=== PATIENT | male | born 1970 | race African-American/Black ===

== ENCOUNTER 2024-09-28 10:09 | Outpatient (AMB) | payer OTHER, SELFPAY ==
--- NOTE | 2024-09-28 07:46 | MHC.OFFVIS ---
Intake Visit Reasons: Current Smoker HPI HPI Current Smoker: Details: Initial visit for this 54yo smoker with a 25+PYH. Patient started smoking at age 18 for 36 years at 1/2-1ppd. . Denies marijuana use. Denies second hand smoke exposure. Denies exposure to chemicals or substances like asbestos. . Denies known family history of lung cancer. Denies personal history of cancers. Denies chest CT in last year. . Denies recent travel outside the [place]. Denies recent respiratory illness or recent hospitalization for respiratory issues. Denies testing positive for COVID. Admits receiving COVID Vaccine. . Denies fever, chills, new/worsening cough, hemoptysis, hoarseness or dysphagia. Denies significant chest pain, significant dyspnea or unintentional weight loss. Patient Lung Cancer Screening Questionnaire reviewed with patient by provider. . Shared Decision Making Completed. Patient meets criteria. Discussed in detail with patient, the risk vs benefit of LDCT screening. Patient consents to proceed with scan. Discussed smoking cessation. [facility] Medical History (Updated 09/28/24 @ 10:28 by Sasha Ward PA-C) Hypertension Erectile dysfunction Nicotine dependence, cigarettes, uncomplicated Surgical History (Updated 09/28/24 @ 10:34 by Sasha Ward PA-C) No pertinent past surgical history Social History (Updated 09/28/24 @ 10:35 by Sasha Ward PA-C) Alcohol intake: current Alcohol intake frequency: a few times a month Patient Tobacco Use Status: Current everyday Tobacco user Years Smoked: (onset 18yo, 1/2-1ppd x 36yrs, 25+PYH) Assessment & Plan Assessment & Plan (1) Nicotine dependence, cigarettes, uncomplicated: Comment: (onset 18yo, 1/2-1ppd x 36yrs, 25+PYH) Code(s): F17.210 - Nicotine dependence, cigarettes, uncomplicated Category: Medical Plan: - SDM visit completed today in office. - Patient meets criteria for LDCT for lung cancer screening purposes and is asymptomatic. - Smoking cessation counseling offered. Patients can always call [phone]. - Will arrange for a LDCT scan of the chest for screening purposes at [facility]. - Risks, benefits, and alternatives were discussed in detail and the patient agrees to proceed. - Risks discussed include but are not limited to: radiation exposure, anxiety during testing and while awaiting results, false negatives, false positives and possibility of additional intervention such as further imaging or surgical procedures for benign disease. - Benefits are obviously detection of lung cancer at an early stage which can lead to improved outcomes. - Discussed the importance of screening program compliance with adherence to yearly LDCT scan as scheduled - or sooner interval scans for personalized screening regimen. - Discussed follow up plan. Our office will send a letter discussing results and if needed set up phone call and office visit based on CT findings. - Patient educated on results categorization and the management decisions for suspicious findings potentially found on the screening LDCT scan. Any patient with a Lung RADS score of 3 or 4 will be reviewed by a multidisciplinary team at [facility] to form a plan of action in regards to scan findings. - If further work up is warranted for a suspicious lung finding this will be followed by the Lung Cancer Screening program in conjunction with the Thoracic Surgery Department at [facility]. - A copy of the office note and LDCT will be sent to the patient's PCP - as well as documentation on any associated further plans of care. - Incidental findings on LDCT are the PCP's responsibility. These findings are indicated with an S finding on the LDCT Assessment. A note discussing the findings will be sent to the PCP who is then responsible for further management. - All questions answered.? Coding Level of Care Code Lung Cancer Screening G0296 Diagnoses Nicotine dependence, cigarettes, uncomplicated F17.210
--- OUTSIDE RECORDS SUMMARY | 2024-09-28 10:40 | XMS_ITS | Data Portability ---
Author Organization [facility], [address] Address [address] [place] [address] Assessment No assessment recorded. Plan of Treatment Reminders Order Date Submit Date Provider Last Modified By Organization Details Last Modified Time Details Appointments None record ed. Lab None record ed. Referral None record ed. Procedures None record ed. Surgeries None record ed. Imaging None record ed. Medication Orders None record ed. Patient TargetsNo targets recorded. Patient InstructionsNo instructions recorded. Reason for Referral None Reported. Medical Equipment None Reported. Vitals None Recorded Social History None recorded. Functional Status None recorded. Mental Status None recorded. Family History Nothing Reported. Medical History No medical history recorded. Past Encounters Encounter ID Performer Location Encounter Start Date Encounter Closed Date Diagnosis/Indication Diagnosis SNOMED-CT Code Diagnosis ICD10 Code Diagnosis Note [id number] [facility] [address] [place] [phone] 06/06/2018 08:37:39 06/06/2018 09:33:50 [id number] [facility] [place] [address] 09/11/2021 15:17:11 09/11/2021 15:29:23 [id number] [address] [place] [address] 04/17/2018 11:24:40 04/17/2018 11:55:22 Health Concerns Section Related Observation LastModified by Organization Detai ls LastModified Time None Recorded Concern Status LastModified by Organization Details LastModified Time None Recorded Advance Directives Directive None Recorded Payers Insurance Date Sequence Insurance Name Policy Number Policy Lockhart Covered Member ID Lockhart Member ID Guarantor Name 05/19/2024 1 [facility] [id number] Odilon Guadalupe [id number] Odilon Guadalupe 05/19/2024 1 [facility] [id number] Odilon Guadalupe [id number] Odilon Guadalpue
--- OUTSIDE RECORDS SUMMARY | 2024-09-28 10:40 | XMS_ITS | Clinical Summary ---
Author Organization [facility] Address [address] [place] [address] Care Team Providers Care Channel Process Supervisor Name Role Phone Ryanne Rashid Primary Care Provider + [phone] Allergies No known active allergies Medications amLODIPine (NORVASC) 5 mg tablet Take 1 tablet (5 mg total) by mouth 1 (one) time each day. Active hydroCHLOROthia zide 12.5 mg tablet Take 1 tablet (12.5 mg total) by mouth 1 (one) time each day. Active sildenafiL (VIAGRA) 50 mg tablet TAKE 1-2 TABLETS BY MOUTH 1 HOUR PRIOR TO SEXUAL ACTIVITY DIRECTED *MAX 2 TABLETS IN 24 HOURS* Active polyethylene glycol (Golytely) 236-22.74-6.74 -5.86 gram solution Take 4L by mouth once for one dose. May substitue any PEG. Starting at 6PM the night before your procedure drink 1 8oz glasses at your own pace until you complete half of the gallon. Finish 2nd half of the gallon 5 hours before your procedure. 4000 mL Active Encounters Date Type Department Care Team Description 07/03/2024 Telephone Gastroenterology - [address] [facility] [address] [place] [phone] Sukhjinder Steele MD from Last 3 Months Social History Tobacco Use Types Packs/Day Years Used Date Smoking Tobacco: Never Assessed Sex and Gender Information Value Date Recorded Sex Assigned at Not on file Legal Sex Male 9:55 AM EST Gender Identity Not on file Sexual Orientation Not on file Plan of Treatment Health Maintenance Due Date Last Done Comments Pneumococcal Vaccine: 50+ Years (1 of 1 - PCV) 2018 Hepatitis B Vaccines (2 of 3 - Hep B Twinrix 3-dose series) 01/20/2024 12/23/2023 Cholesterol Screening (Lipid Panel) 05/18/2024 Colorectal Cancer Screening: Colonoscopy 05/18/2024 Depression Screening 05/18/2024 HIV Screening 05/18/2024 Hepatitis C Screening 05/18/2024 Hypertension/CHF/CAD Annual BMP Blood Test 05/18/2024 Social Influencers of Health Screening 05/18/2024 Influenza Vaccine (#1) 2024 , 12/24/2022, 02/06/2022 DTaP,Tdap,and Td Vaccines (2 - Td or Tdap) 08/25/2028 08/25/2018 COVID-19 Vaccine Completed 12/23/2023, 08/2022, 02/06/2022, Additional history exists Hepatitis A Vaccines Aged Out 12/23/2023 No long er eligible based on patient's age to complete this topic Zoster Vaccines Completed 02/15/2024, 12/16/2023 HIB Vaccines Aged Out No longer eligi ble based on patient's age to complete this topic HPV Vaccines Aged Out No longer eligi ble based on patient's age to complete this topic IPV Vaccines Aged Out No longer eligi ble based on patient's age to complete this topic MMR Vaccines Aged Out No longer eligi ble based on patient's age to complete this topic Meningococcal ACWY Vaccine Aged Out N o longer eligible based on patient's age to complete this topic Meningococcal B Vaccine Aged Out No l onger eligible based on patient's age to complete this topic RSV Immunization Patients Under 20 months Aged Out No longer eligible based on patient's age to complete this topic Varicella Vaccines Aged Out No longer eligible based on patient's age to complete this topic Insurance [facility] [id number] Care Teams Channel Process Supervisor Relationship Specialty Start Date End Date Ryanne Rashid [facility] [place] [address] PCP - General Family Medicine 05/21/24
== END 2024-09-28 10:49 | disposition home or self-care (01) ==
LOC: HO.HPS 10:09
PROVIDERS: PCP Internal Medicine Geriatric Medicine; Referring Provider Internal Medicine Geriatric Medicine; Visit Provider Physician Assistant Medical
DX: F17.210 Nicotine dependence, cigarettes, uncomplicated (principal)
CPT/HCPCS: G0296

== ENCOUNTER 2024-09-28 10:35 | Outpatient (REF) | payer OTHER, SELFPAY ==
--- NOTE | ~2024-09-28 | CT_ITS ---
EXAMINATION: CT LUNG SCREENING HISTORY: F17.210 - Nicotine dependence, cigarettes, uncomplicated TECHNIQUE: Low dose axial images were obtained from the sternal notch to upper abdomen without IV contrast per standard departmental protocol. Sagittal and coronal reformatted images were also obtained and reviewed. One or more of the following techniques was used for dose reduction: Automated exposure control, adjustment of the mA and/or kV according to patient size, use of iterative reconstruction technique. DLP: 49 mGy-cm COMPARISON: There are no prior studies available for comparison. FINDINGS: Lung nodules: No suspicious pulmonary nodules are identified. Emphysema: mild Coronary Calcification: mild Aortic Arch Calcification: none Potentially Significant Incidentals : none Additional Chest Findings: There is no pleural or pericardial effusion. No mediastinal or axillary lymphadenopathy is identified. Visualized upper abdomen: The visualized portions of the liver, spleen, and adrenals have an unremarkable unenhanced appearance. CT/CT lung screening IMPRESSION: No suspicious pulmonary nodules are identified. LUNG-RADS ASSESSMENT: Lung-RADS 1: Negative MANAGEMENT: Continue annual screening with LDCT in 12 months Category S: N/A Electronically signed by: Yony Duggan MD 09/28/2024 11:56 AM EDT
== END 2024-09-28 10:36 | disposition home or self-care (01) ==
LOC: HO.CT 10:35
PROVIDERS: PCP Nurse Practitioner Family; Visit Provider Physician Assistant Medical
DX: Z12.2 Encounter for screening for malignant neoplasm of respiratory organs (principal); F17.210 Nicotine dependence, cigarettes, uncomplicated
CPT/HCPCS: 71271; G0296

== ENCOUNTER → 2024-09-28 10:36 | Outpatient (BNV) | payer OTHER, SELFPAY | PROVIDERS: PCP Nurse Practitioner Family; Visit Provider Radiology Diagnostic Radiology | DX: F17.210 Nicotine dependence, cigarettes, uncomplicated (principal) | CPT/HCPCS: 71271 ==

== ENCOUNTER 2024-11-23 10:57 | Outpatient (AMB) | payer OTHER, SELFPAY ==
--- NOTE | 2024-11-23 11:02 | A.OFFVIS_ITS ---
Vital Signs 11/23/24 11:03 Height 5 ft 10 in Weight 168 lb BMI 24.1 BP 124/77 Blood Pressure Location Lt brachial Position Sitting Pulse 92 Pulse Oximetry (%) 97 Oxygen Delivery Method Room Air Intake Visit Reasons: Sprague screening Intake Note: Patient new consult for 1st pre Colonoscopy screening. Patient denies any GI issues. [employer] Technician Required: No Accompanied by: Self / Same As Patient Allergies No Known Allergies Allergy (Verified 11/23/24 11:02) Medication List - Last Reconciled 11/23/24 by Kecia Barriga CNP amlodipine 5 mg PO DAILY hydrochlorothiazide 12.5 mg PO DAILY HPI HPI Sprague screening: Details: Patient is a 54-year-old male with PMH of hypertension, nicotine dependence. Referred by PCP for pre colonoscopy screening. This will be his first colonoscopy. His bowel movements occur daily and are soft and formed, without reports of constipation, diarrhea, or blood in stools. He denies regular stomach pain, nausea, vomiting, heartburn, or difficulty swallowing, with occasional mild self-resolving abdominal discomfort noted. No significant changes in appetite or unexplained weight loss; current weight of 1 68 pounds is consistent with his historical baseline. He had a stool-based colon cancer screening two years ago, likely Cologuard, which he reports as negative. There is no history of GI comorbidities or symptoms that necessitate further immediate workup. Past labs reveal no concerning anemia or diabetes, though one liver level was noted to be slightly elevated, repeating pending. Social hx: -Previously consumed liquor; switched to beer and drinks once or twice per week. -denies recreational drug use -current 1/2 ppd smoker - family hx as below - denies personal hx of CA -denies significant cardiopulmonary history -tolerated anesthesia in the past without difficulty. [facility] Medical History (Updated 11/23/24 @ 11:30 by Kecia Barriga CNP) Colon cancer screening Hypertension Erectile dysfunction Nicotine dependence, cigarettes, uncomplicated Surgical History No pertinent past surgical history Social History Alcohol intake: current Alcohol intake frequency: a few times a month Patient Tobacco Use Status: Current everyday Tobacco user Years Smoked: (onset 18yo, 1/2-1ppd x 36yrs, 25+PYH) Review of Systems Const Reports as per HPI ENT Reports as per HPI Card Reports as per HPI Resp Reports as per HPI GI Reports as per [facility] Reports as per HPI Physical Exam Vital Signs: Last Vital Signs Pulse 92 11/23/24 11:03 BP 124/77 11/23/24 11:03 Pulse Ox 97 11/23/24 11:03 Oxygen Delivery Method Room Air 11/23/24 11:03 BMI result Body Mass Index 24.1 Const General: healthy appearing, no acute distress and well developed Nutritional Appearance: average body habitus Orientation/consciousness: patient oriented x3 HEENT Head: Yes normal to inspection, Yes normocephalic and Yes atraumatic Face and sinus: Yes normal facial exam Eyes General: appearance normal, both eyes and all related structures Neck Neck: Yes normal visual inspection Resp Effort & Inspection: normal respiratory effort, able to speak in complete sentences, no tracheal deviation and symmetric chest movement Neuro General: patient oriented x3 Gait exam (Neuro): Normal gait present Psych Appearance: grossly normal Mental Status: mental status grossly normal Speech and movement: Normal speech and movement present Affect: normal affect Attitude: cooperative Thought process: Normal thought process present Thought content: Normal thought content present Insight: Good insight present (Psych) Judgement: Good judgement present (Psych) Assessment & Plan Assessment & Plan (1) Colon cancer screening: Code(s): Z12.11 - Encounter for screening for malignant neoplasm of colon Category: Medical Plan: First-time colonoscopy screening following reported negative stool-based testing with benign GI history. Stool based results not available at time of visit. Additional Testing: -Encouraged to complete routine labs ordered by PCP in a fasted state. Medications: -prescriptions for laxative tablets and MiraLax sent to pharmacy; instructions for Gatorade purchase and clear liquid diet given. Patient educated on scheduling process, procedure preparation, including avoiding certain foods and ensuring clear liquid intake Advised on necessity for ride post-procedure due to sedation. Plan Follow-up after colonoscopy as warranted or sooner if needed Time: I spent a total of 30 minutes on the date of encounter which includes: Preparing to see the patient (reviewed previous documentation, test results and medical history) Performing a medically appropriate exam and/or evaluation Ordering medications, tests, and procedures Documenting clinical information in the health record Orders: Referrals GI Procedure Notification Z12.11 - Encounter for screening for malignant neoplasm of colon Medications: New polyethylene glycol 3350 (Miralax) per colonoscopy prep instructions 238 grams PO ONCE 238 grams 0RF bisacodyl Take per colonoscopy instructions 5 mg PO BID 4 tabs 0RF Coding Level of Care Code New Pt New Pt Level 3 (93681) Patient Type New Diagnoses Colon cancer screening Z12.11
[2024-11-23 11:03] VITALS: BP 124/77; PULSE 92; O2SAT 97; BMI 24.1
--- OUTSIDE RECORDS SUMMARY | 2024-11-23 11:59 | XMS_ITS | Clinical Summary ---
Author Organization [employer] Address [address] [place] [address] Care Team Providers Care Human Capital Consultant Name Role Phone Jl Stubbs MD Primary Care Prov ider Allergies No known active allergies Medications sildenafil (Viagra) 50 MG tablet Take 50 mg by mouth if needed for erectile dysfunction. Active hydroCHLOROthia zide (HYDRODiuril) 25 MG tablet Take 1 tablet (25 mg) by mouth Once per day. 90 tablet 3 09/28/2024 09/29/19 26 Active amLODIPine (Norvasc) 5 MG tablet TAKE 1 TABLET BY MOUTH EVERY DAY 90 tablet 1 09/28/2024 Active Active Problems Problem Noted Date Diagnosed Date Encounter for medical examination to establish c are 06/29/2024 Assessment & Plan (06/29/2024 10:08 AM EDT): Last pcp visit 1 year ago ER: - Hospitalization:- Pmhx: HTN, ED Pshx:- All:- Meds: amlodine 5mg, hydrochlorothiazide 12.5Mg, sildenafil 50mg Screening for lung cancer 06/29/2024 Assessment & Plan (06/29/2024 10:12 AM EDT): Will refer for lung cancer screening tasked [place] Screening for colon cancer 06/29/2024 Assessment & Plan (06/29/2024 10:12 AM EDT): Will refer to Gi for screening colonoscopy Primary hypertension 06/29/2024 Assessment & Plan (09/28/2024 9:48 AM EDT): Borderline elevated, will increase hydrochlorothiazide to 25mg, keep low sodium diet and exercise as tolerated, follow up in 3 months, bp target <140/90. New labs ordered Assessment & Plan (06/29/2024 10:14 AM EDT): On amlodipine and hydrochlorothiazide, continue low sodium diet and exercise as tolerated, keep bp log, new bp machine sent to [facility] pharmacy Encounters Date Type Department Care Team Description 09/28/2024 8:45 AM EDT Office Visit [facility] PEDS [address] [place] [address] Jl Stubbs MD Primary hypertension (Primary Dx) 09/28/2024 Travel 09/21/2024 Travel 09/20/2024 Patient Outreach [facility] MEDICINE [address] [place] [address] Jl Stubbs MD Pre-visit Planning (SDOH screening completed on 06/29/24) 08/26/2024 Refill [facility] PEDS [address] [place] [address] Jl Stubbs MD 08/26/2024 Refill [facility] MED & PEDS [address] [place] [address] Jl Stubbs MD 08/23/2024 Refill [facility] MED & PEDS [address] [place] [address] Rosa Talley FNP from Last 3 Months Family History Medical History Relation Name Comments HIV Father Hypertension Mother Cancer Neg Hx Relation Name Status Comments Father Mother Social History Tobacco Use Types Packs/Day Years Used Date Smoking Tobacco: Every Day Cigarettes 0.5 36.7 Started: 1990 Smokeless Tobacco: Never Tobacco Cessation:Ready to Q uit: Not Asked; Counseling Given: Not Answered Alcohol Use Standard Drinks/Week Comments Yes 0 (1 standard drink = 0.6 oz pur e alcohol) socially nilton Depression Answer Date Recorded Patient Health Questionnaire-9 Score 0 06/29/2024 Patient Health Questionnaire-9 Score 0 06/29/2024 Last PHQ-9: Questionnaire Data Not on file 0 06/29/2024 Housing Stability Answer Date Recorded What is your housing situation today? I have jovi muñiz 06/29/[address] you li ve. Do you have problems with any of the following? None of the above 06/29/2024 Food Insecurity Answer Date Recorded Within the past 12 months, y ou worried that your food would run out before you got money to buy more: Never True 06/29/2024 Within the past 12 months,th e food you bought just didn't last and you didn't have enough money to get more: Never True 01/2025 Transportation Answer Date Recorded In the past 12 months, has l ack of transportation kept you from medical appts, meetings, work or from getting things needed for daily living? No 06/29/2024 Utilities Answer Date Recorded In the past 12 months, has t he electric, gas, oil or water company threatened to shut off services in your home? No 06/29/2024 Depression Answer Date Recorded Patient Health Questionnaire-2 Score 0 06/29/2024 Internet Access Answer Date Recorded Internet Access Q1 Yes 06/29/2024 Internet Access Q2 Not on file 06/29/2024 Sex and Gender Information Value Date Recorded Sex Assigned at Male 01/18/2022 10:35 AM EDT Legal Sex Male 4:07 PM EDT Gender Identity Male 06/28/2024 2:28 PM EDT Sexual Orientation Don't know 06/28/2024 2 :28 PM EDT Last Filed Vital Signs Vital Sign Reading Time Taken Comments Blood Pressure 134/90 09/28/2024 8:49 AM EDT Pulse 84 09/28/2024 8:49 AM EDT Temperature 36.8 C (98.3 F) 09/28/2024 8:49 AM EDT Respiratory Rate 20 09/28/2024 8:49 AM EDT Oxygen Saturation - - Inhaled Oxygen Concentration - - Weight 74.8 kg (165 lb) 09/28/2024 8:49 AM EDT Height 175.3 cm (5' 9 ) 09/28/2024 8:49 AM EDT Body Mass Index 24.37 09/28/2024 8:49 AM EDT Plan of Treatment Upcoming Encounters Date Type Department Care Team (Late st Contact Info) Description 12/31/2024 9:30 AM EDT Telemedicine [facility] MED [facility] PEDS [address] [place] [address] Jl Stubbs MD [address] [place] [address] Health Maintenance Due Date Last Done Comments CT Colonography 1968 Colonoscopy 1968 Colorectal Cancer Screening 1968 FIT DNA/Cologuard 1968 FIT 1968 FOBT 1968 Lipid Panel 1968 Sigmoidoscopy 1968 Hepatitis B Vaccines (1 of 3 - 19+ 3-dose series) 06/08/1987 Pneumococcal Vaccine: 50+ Years (1 of 2 - PCV) 06/08/1987 Zoster Vaccines (1 of 2) 2018 COVID-19 Vaccine ( - 2023-2 5 season) 2024 Influenza Vaccine (#1) 2024 Disability Screening 06/28/2025 06/28/2024 Alcohol/Substance Use Screening 06/29/2025 06/29/2024 Depression Screening 06/29/2025 06/29/2024, 06/29/2024 SDOH Screening 06/29/2025 06/29/2024 Tobacco Screening 06/29/2025 06/29/2024 DTaP/Tdap/Td Vaccines (2 - T d or Tdap) 08/25/2028 08/25/2018 RSV Patients and Patients Aged 60 years or older (1 - 1-dose 75+ series) 06/08/2043 HIV Screening Completed 05/26/2022 Hepatitis C Screening Completed 05/26/2022 HIB Vaccines Aged Out No longer eligi ble based on patient's age to complete this topic HPV Vaccines Aged Out No longer eligi ble based on patient's age to complete this topic Hepatitis A Vaccines Aged Out No long er eligible based on patient's age to complete this topic IPV Vaccines Aged Out No longer eligi ble based on patient's age to complete this topic Meningococcal B Vaccine Aged Out No l onger eligible based on patient's age to complete this topic Meningococcal Vaccine Aged Out No veronika alex eligible based on patient's age to complete this topic RSV under 20 months Aged Out No longe r eligible based on patient's age to complete this topic Rotavirus Vaccines Aged Out No longer eligible based on patient's age to complete this topic Insurance [facility] CHO[facility]1 [place] [id number] Care Teams Human Capital Consultant Relationship Specialty Start Date End Date Jl Stubbs MD [address] [place] [id number] PCP - General Internal Medicine 06/29/24
--- OUTSIDE RECORDS SUMMARY | 2024-11-23 11:59 | XMS_ITS | Encounter Summary ---
Author Organization [employer] Address [address] [facility] 7 [place] [address] Care Team Providers Care Reimbursement Counselor Name Role Phone Jl Stubbs MD Primary Care Prov ider Reason for Visit * Reason Onset Date Comments Med Refill 08/26/2024 Encounter Details Date Type Department Care Team ([facility] st Contact Info) Description 08/26/[address] [facility] CHC MED & PEDS [address] [place], [place] [phone] Jl Stubbs MD [address] [place] [address] Social History Tobacco Use Types Packs/Day Years Used Date Smoking Tobacco: Every Day Cigarettes 0.5 36.7 Started: 1990 Smokeless Tobacco: Never Alcohol Use Standard Drinks/Week Comments Yes 0 (1 standard drink = 0.6 oz pur e alcohol) socially nilton Depression Answer Date Recorded Patient Health Questionnaire-9 Score 0 06/29/2024 Patient Health Questionnaire-9 Score 0 06/29/2024 Last PHQ-9: Questionnaire Data Not on file 0 06/29/2024 Housing Stability Answer Date Recorded What is your housing situation today? I have jovicira muñiz 06/29/[address] you [...] PM EDT Sexual Orientation Don't know 06/28/2024 2: 28 PM EDT documented as of this encounter Plan of Treatment Upcoming Encounters Date Type Department Care Team (Late st Contact Info) Description 12/31/2024 9:30 AM EDT Telemedicine [facility] MED & PEDS [address] [place] [address] Jl Stubbs MD [address] [place] [address] documented as of this encounter Visit Diagnoses Not on filedocumented in this encounter Additional Health Concerns Assessment Noted Time PHQ-9 Depression Total Score: 0 06/30/19 9:34 AM EDT documented as of this encounter Care Teams Reimbursement Counselor Relationship Specialty Start Date End Date Jl Stubbs MD [address] [place] [address] PCP - General Internal Medicine 06/29/24 documented as of this encounter
--- OUTSIDE RECORDS SUMMARY | 2024-11-23 11:59 | XMS_ITS | Clinical Summary ---
Author Organization [facility] Address [address] [place] [address] Care Team Providers Care Registered Nurse Obstetrics Name Role Phone Ryanne Rashid Primary Care Provider + [phone] Allergies No known active allergies Medications amLODIPine [...] hours before your procedure. 4000 mL Active Social History Tobacco Use Types Packs/Day Years [...] Hep B Twinrix 3-dose series) 01/20/2024 12/23/2023 Depression Screening 03/21/2024 Cholesterol Screening (Lipid Panel) 05/18/2024 Colorectal Cancer Screening: Colonoscopy 05/18/2024 HIV Screening 05/18/2024 Hepatitis C Screening [...] patient's age to complete this topic Insurance [facility] LAURA SPEARS [id number] Care Teams Registered Nurse Obstetrics Relationship Specialty Start Date End Date Ryanne Rashid [facility] [place] [address] PCP - General Family Medicine 05/21/24
== END 2024-11-23 11:46 | disposition home or self-care (01) ==
LOC: HO.HGI 10:58
PROVIDERS: PCP Internal Medicine Geriatric Medicine; Visit Provider Nurse Practitioner Family
DX: Z01.818 Encounter for other preprocedural examination (principal); Z12.11 Encounter for screening for malignant neoplasm of colon
CPT/HCPCS: 99203

== ENCOUNTER → 2024-11-23 10:57 | Outpatient (BNVA) | payer OTHER, SELFPAY | PROVIDERS: PCP Internal Medicine Geriatric Medicine; Visit Provider Nurse Practitioner Family | DX: I10 Essential (primary) hypertension (principal); F17.210 Nicotine dependence, cigarettes, uncomplicated; Z12.11 Encounter for screening for malignant neoplasm of colon; Z13.89 Encounter for screening for other disorder ==

== ENCOUNTER 2024-12-12 13:02 | Outpatient (REF) | payer OTHER, SELFPAY ==
[2024-12-12 14:33] LABS: MANUAL DIFF FLAG NO
[2024-12-12 14:42] LABS: Hematocrit 42.1 % (42.0-52.0); Hemoglobin 14.5 g/dl (14.0-18.0); Imm Gran Abs Auto 0.04 X10*3/uL (0.00-0.03); Imm Gran Pct Auto 0.4 % (0.0-0.4); Lymphocytes Absolute Auto 2.8 X10*3/uL (1.2-4.9); Mean Corpuscular HGB Conc 34.4 g/dl (31.0-36.0); Mean Corpuscular Hemoglobin 29.8 pg (27.0-33.0); Mean Corpuscular Volume 86.6 fL (80.0-98.0); NRBC Abs Auto 0.000 X10*3/uL (0.0-0.012); NRBC Pct Auto 0.0 /100WBC (0.0-0.2); Platelet Count 216 X10*3/uL (160-400); Red Blood Count 4.86 X10*6/uL (4.60-5.80); White Blood Count 10.5 X10*3/uL (4.8-10.8)
[2024-12-12 14:52] LABS: Hemoglobin A1C 131.2714 umol/L
--- OUTSIDE RECORDS SUMMARY | 2024-12-12 15:28 | XMS_ITS | Clinical Summary ---
Author Organization [employer] Address 75 [facility] 7t [place] [address] Care Team Providers Care Manager Development Name Role Phone Jl Stubbs MD Primary Care Prov ider Allergies No known active allergies Medications hydroCHLOROthi azide (HYDRODiuril) 25 MG tablet Take 1 tablet (25 mg) by mouth Once per day. 90 tablet 3 5 026 Active amLODIPine (Norvasc) 5 MG tablet TAKE 1 TABLET BY MOUTH EVERY DAY 90 tablet 1 5 Active sildenafil (Viagra) 50 MG tablet TAKE 1-2 TABLETS BY MOUTH 1 HOUR PRIOR TO SEXUAL ACTIVITY DIRECTED *MAX 2 TABLETS IN 24 HOURS* 18 tablet 4 5 Active sildenafil (Viagra) 50 MG tablet Take 50 mg by mouth if needed for erectile dysfunction. 025 Discontinued Active Problems Problem Noted Date Diagnosed Date Encounter for medical examination to establish c are 06/29/2024 Assessment & Plan (06/29/2024 10:08 AM EDT): Last pcp visit 1 year ago ER: - Hospitalization:- Pmhx: HTN, ED Pshx:- All:- Meds: amlodine 5mg, hydrochlorothiazide 12.5Mg, sildenafil 50mg Screening for lung cancer 06/29/2024 Assessment & Plan (06/29/2024 10:12 AM EDT): Will refer for lung cancer screening tasked [place] Screening for colon cancer 06/29/2024 Assessment & [...] bp log, new bp machine sent to [facility] Encounters Date Type Department Care Team Description 12/11/2024 Refill [facility] MED & PEDS [address] [place] [address] Jl Stubbs MD 09/28/2024 8:45 AM EDT Office Visit [facility] MED & PEDS [address] [place] [address] Jl Stubbs MD Primary hypertension (Primary Dx) 09/28/2024 Travel 09/21/2024 Travel 09/20/2024 Patient Outreach [facility] MEDICINE [address] [place] [address] Jl Stubbs MD Pre-visit Planning (SDOH screening completed on 06/29/24) from Last 3 Months Family History Medical [...] Upcoming Encounters Date Type Department Care Team ([facility] st Contact Info) Description 12/31/2024 9:30 AM EDT Telemedicine [facility] MED & PEDS [address] [place] [address] Jl Stubbs MD [address] [place] [address] Health Maintenance Due Date Last Done Comments CT Colonography 1968 Colonoscopy 1968 Colorectal Cancer Screening 1968 FIT DNA/Cologuard 1968 FIT 1968 FOBT 1968 Lipid Panel 1968 Sigmoidoscopy 1968 Hepatitis B Vaccines (1 of 3 - 19+ 3-dose series) 06/08/1987 Pneumococcal Vaccine: 50+ Years (1 of 2 - PCV) 06/08/1987 Zoster Vaccines (1 of 2) 2018 COVID-19 Vaccine (1 - 2023-2 5 season) 2024 Influenza Vaccine [...] on patient's age to complete this topic Procedures Procedure Name Priority Date/Time Associated Diagnosis Comments HEMOGLOBIN A1C Routine 12/12/2024 1:05 PM EDT Primary hypertension CBC WITH AUTO DIFFERENTIAL Routine 12/12/2024 1:05 PM EDT Primary hypertension from Last 3 Months Results * (ABNORMAL) CBC auto differential (12/12/2024 1:05 PM EDT) White Blood Count 10.5 4.8 - 10.8 X10*3/uL [facility] Red Blood Count 4.86 4.60 - 5.80 X10*6/uL [facility] Hemoglobin 14.5 14.0 - 18.0 g/dl [facility] Hematocrit 42.1 42.0 - 52.0 % [facility] Mean Corpuscular Volume 86.6 80.0 - 98.0 fL [facility] Mean Corpuscular Hemoglobin 29.8 27.0 - 33.0 pg [facility] Mean Corpuscular HGB Conc 34.4 31.0 - 36.0 g/dl [facility] Red Cell Distribution Width 12.8 11.0 - 16.0 % [facility] Platelet Count 216 160 - 400 X10*3/uL [facility] Mean Platelet Volume 9.7 9.4 - 12.4 fL [facility] Neutrophils Percent Auto 63.4 45 - 73 % [facility] Imm Gran Pct Auto 0.4 0.0 - 0.4 % [facility] Lymphocytes Percent Auto 26.5 20 - 40 % [facility] Monocytes Percent Auto 7.1 2 - 11 % [facility] Eosinophils Percent Auto 2.1 0 - 4 % [facility] Basophils Percent Auto 0.5 0 - 2 % [facility] NRBC Pct Auto 0.0 0.0 - 0.2 /100WBC [facility] Neutrophils Absolute Auto 6.7 2.0 - 8.3 x10*3/uL [facility] Imm Gran Abs Auto 0.04(H) 0.00 - 0.03 X10*3/uL [facility] Lymphocytes Absolute Auto 2.8 1.2 - 4.9 X10*3/uL [facility] Monocytes Absolute Auto 0.8 0.1 - 1.2 X10*3/uL [facility] Eosinophils Absolute Auto 0.2 0.0 - 0.4 X10*3/uL [facility] Basophils Absolute Auto 0.1 0.0 - 0.2 X10*3/uL [facility] NRBC Abs Auto 0.000 0.0 - 0.012 X10*3/uL [facility] Blood Venous blood specimen / Unknown 12/12/2024 1:05 PM EDT 12/12/2024 2:28 PM EDT Jl Fountain MD LAB BLOOD ORDERABL ES Final Result Performing Organization Address [facility] de Phone Number [facility] [address] [place] [phone] * Hemoglobin A1c (12/12/2024 1:05 PM EDT) Hemoglobin A1c 5.4 <6.0 % [facility] Comment:Hemoglobin A1C Refer ence Range Adults: 4.8 - 6.0 % Non diabetic: < 6.0 % Goal: < 7.0 %Additional Action Suggested: > 8.0 %Note: Hemoglobin A1c results are invalid for patients with abnormal amounts of HbF. Blood transfusions may impact the HbA1c concentration in the patient sample. Estimated Average Glucose 108 mg/dL [facility] Comment:eAG = Estimated ave rage glucose which is %A1C expressed asaverage glucose, using the formula of the Q0G-ZnasflhVluxjcz Glucose study (ADAG), Diabetes Care, Vol.31,#8,2007 Blood Venous blood specimen / Unknown 12/12/2024 1:05 PM EDT 12/12/2024 2:28 PM EDT Jl Fountain MD LAB BLOOD ORDERABL ES Final Result Performing Organization Address [facility] Co de Phone Number [facility] [address] [place] [phone] from Last 3 Months Insurance [facility] Care Teams Manager Development Relationship Specialty Start Date End Date Jl Stubbs MD [address] [place] [phone] PCP - General Internal Medicine 06/29/24
--- OUTSIDE RECORDS SUMMARY | 2024-12-12 15:28 | XMS_ITS | Encounter Summary ---
Author Organization [employer] Address 75 [facility] 7 [place] [address] Care Team Providers Care Utilities And Maintenance Supervisor Name Role Phone Jl Stubbs MD Primary Care Prov ider Reason for Visit * Reason Onset Date Comments Med Refill 08/26/2024 Encounter Details Date Type Department Care Team ([facility] st Contact Info) Description 08/26/2024 Refill [facility] CHC MED & PEDS [address] [place], [place] [phone] Jl Stubbs MD [address] [place] [address] Social History Tobacco Use Types Packs/Day Years [...] Description 12/31/2024 9:30 AM EDT Telemedicine [facility] MED & PEDS [address] [place] [address] Jl Stubbs MD [address] [place] [address] documented as of this encounter Visit Diagnoses Not on filedocumented in this encounter Additional Health Concerns Assessment Noted Time PHQ-9 Depression Total Score: 0 06/30/19 9:34 AM EDT documented as of this encounter Care Teams Utilities And Maintenance Supervisor Relationship Specialty Start Date End Date Jl Stubbs MD [address] [place] [address] PCP - General Internal Medicine 06/29/24 documented as of this encounter
--- OUTSIDE RECORDS SUMMARY | 2024-12-12 15:28 | XMS_ITS | Clinical Summary ---
Author Organization [facility] Address [address] [place] [address] Care Team Providers Care Corn Press Operator Name Role Phone Ryanne Rashid Primary Care Provider + [phone] Allergies No known active allergies Medications amLODIPine [...] (2 - Td or Tdap) 08/25/2028 08/25/2018 RSV Immunization Adult Patients (1 - 1-dose 75+ series) 06/08/2043 COVID-19 Vaccine Completed 12/23/2023, 08/2022, 02/06/2022, Additional [...] patient's age to complete this topic Insurance [facility] LAURA SPEARS [id number] Care Teams Corn Press Operator Relationship Specialty Start Date End Date Ryanne Rashid [address] [place] [address] [address] [facility] [address] PCP - General Family Medicine 05/21/24
--- OUTSIDE RECORDS SUMMARY | 2024-12-12 15:28 | XMS_ITS | Encounter Summary ---
Author Organization [employer] Address 75 [facility] 7 [place] [address] Care Team Providers Care Healthcare Translator Name Role Phone Jl Stubbs MD Primary Care Prov ider Reason for Visit * Reason Comments Med Refill Encounter Details Date Type Department Care Team ([facility] st Contact Info) Description 12/11/2024 Refill [facility] CHC MED & PEDS [address] [place], [place] [phone] Jl Stubbs MD [address] [place] [address] Social History Tobacco Use Types Packs/Day Years [...] your housing situation today? I have jovi sing 06/29/[address] you li [...] Info) Description 12/31/2024 9:30 AM EDT Telemedicine [facility] MED & PEDS [address] [place] [address] Jl Stubbs MD [address] [place] [address] documented as of this encounter Visit Diagnoses Not on filedocumented in this encounter Additional Health Concerns Assessment Noted Time PHQ-9 Depression Total Score: 0 06/30/19 9:34 AM EDT documented as of this encounter Care Teams Healthcare Translator Relationship Specialty Start Date End Date Jl Stubbs MD [address] [place] [address] PCP - General Internal Medicine 06/29/24 documented as of this encounter
[2024-12-12 15:33] LABS: Anion Gap 11 (12-20)
[2024-12-12 15:37] LABS: Alanine Aminotransferase 23 U/L (0-40); Albumin Level 4.5 g/dL (3.5-5.0); Alkaline Phosphatase 100 U/L (39-117); Aspartate Amino Transferase 27 U/L (5-37); Blood Urea Nitrogen 11 mg/dL (9-16); Calcium 9.0 mg/dL (8.4-10.2); Carbon Dioxide 28 mmol/L (22-29); Chloride 102 mmol/L (96-108); Cholesterol 126 mg/dL (<200); Estimated Glomerular Filt Rate > 60; HDL Cholesterol 54 mg/dL (>40); Potassium 3.9 mmol/L (3.3-5.1); Sodium 137 mmol/L (135-145); Total Protein 7.6 g/dL (6.5-8.0); Triglycerides 43 mg/dL (<150)
[2024-12-13 04:03] LABS: HIV Num 1 0.06 S/CO (0.00-0.99); ~HepC Num1 0.14 S/CO (0.00-0.79); ~Hepatitis C Antibody Nonreactive (Nonreactive)
== END 2024-12-12 13:03 | disposition home or self-care (01) ==
LOC: HO.CHCLDS 13:02
PROVIDERS: Visit Provider Internal Medicine
DX: Z13.1 Encounter for screening for diabetes mellitus (principal); Z11.4 Encounter for screening for human immunodeficiency virus [HIV]; Z11.59 Encounter for screening for other viral diseases; I10 Essential (primary) hypertension
CPT/HCPCS: 36415; 80053; 80061; 83036; 84443; 85025; 86803; 87389

== ENCOUNTER 2024-12-19 08:52 | Day surgery (SDC) | payer OTHER, SELFPAY ==
--- OUTSIDE RECORDS SUMMARY | 2024-11-26 07:28 | XMS_ITS | Encounter Summary ---
Author Organization [employer] Address 75 [facility] 7 [place] [address] Care Team Providers Care Hand Alterations Seamstress Name Role Phone Jl Stubbs MD Primary Care Prov ider Reason for Visit * Reason Onset Date Comments Med Refill 08/26/2024 Encounter Details Date Type Department Care Team ([facility] st Contact Info) Description 08/26/2024 Refill [facility] CHC MED & PEDS [address] [place], [place] [phone] Jl Stubbs MD [address] [place] [address] Social History Tobacco Use Types Packs/Day Years [...] is your housing situation today? I have joviicra muñiz 06/29/[address] you [...] Info) Description 12/31/2024 9:30 AM EDT Telemedicine [facility] MED & PEDS [address] [place] [address] Jl Stubbs MD [address] [place] [address] documented as of this encounter Visit Diagnoses Not on filedocumented in this encounter Additional Health Concerns Assessment Noted Time PHQ-9 Depression Total Score: 0 06/30/19 9:34 AM EDT documented as of this encounter Care Teams Hand Alterations Seamstress Relationship Specialty Start Date End Date Jl Stubbs MD [address] [place] [address] PCP - General Internal Medicine 06/29/24 documented as of this encounter
--- OUTSIDE RECORDS SUMMARY | 2024-11-26 07:28 | XMS_ITS | Clinical Summary ---
Author Organization [employer] Address 75 [facility] 7t [place] [address] Care Team Providers Care Airport Operations Duty Manager Name Role Phone Jl Stubbs MD Primary [...] bp log, new bp machine sent to [facility] Encounters Date Type Department Care Team Description 09/28/2024 8:45 AM EDT Office Visit [facility] CHC MED & PEDS [address] [place] [address] Jl Stubbs MD Primary hypertension (Primary Dx) 09/28/2024 Travel 09/21/2024 Travel 09/20/2024 Patient Outreach [facility] MEDICINE [address] [place] [address] Jl Stubbs MD Pre-visit Planning (SDOH screening completed on 06/29/24) 08/26/2024 Refill [facility] CHC MED & PEDS [address] [place] [address] Jl Stubbs MD 08/26/2024 Refill [facility] MED & PEDS [address] [place] [address] Jl Stubbs MD from Last 3 Months Family History Medical [...] Don't know 06/28/2024 2: 28 PM EDT Last Filed Vital Signs Vital [...] Upcoming Encounters Date Type Department Care Team ([facility] st Contact Info) Description 12/31/2024 9:30 AM EDT Telemedicine [facility] MED & PEDS [address] [place] [address] Jl Stubbs MD [address] [place] [phone] Health Maintenance Due Date Last Done Comments [...] patient's age to complete this topic Insurance #1 [employer] Care Teams Airport Operations Duty Manager Relationship Specialty Start Date End Date Jl Stubbs MD [address] [place] [id number] PCP - General Internal Medicine 06/29/24
--- OUTSIDE RECORDS SUMMARY | 2024-11-26 07:28 | XMS_ITS | Clinical Summary ---
Author Organization [facility] Address [address] [place] [address] Care Team Providers Care Business Intelligence Developer Name Role Phone Ryanne Rashid Primary Care Provider + [phone] Allergies No known active allergies Medications amLODIPine [...] patient's age to complete this topic Insurance [facility] LAURA SPEARS [id number] Care Teams Business Intelligence Developer Relationship Specialty Start Date End Date Ryanne Rashid [facility] [place] [address] PCP - General Family Medicine 05/21/24
[2024-12-17 14:51] VITALS: BMI 24.1
--- NOTE | 2024-12-19 08:45 | PC.NURSE ---
called patient was supposed to a 830am arrival time. stated he will be another 10 minutes
[2024-12-19 09:11] VITALS: BMI 24.1
[2024-12-19 09:19] VITALS: BP 142/100; PULSE 94; RESP 16; TEMP 37.1; O2SAT 95
[2024-12-19] MEDS: Lactated Ringers 1,000 ML 100 ML IVCONT (09:32)
--- NOTE | 2024-12-19 09:37 | P.HPSUR_ITS ---
Pre-Procedural Eval Section A - 24 Hr Update-Section A only Date of Service: 12/19/24 Section B - Complete if H&P > 30 days Chief Complaint: screening Relevant Family History (Specify if Yes): No Relevant Social History: Tobacco Use Present Medications: see Short Stay Collaborative assessment Medical History: Significant History (Colon cancer screening Hypertension Erectile dysfunction Nicotine dependence, cigarettes, uncomplicated) History of Previous Operations: No relevant previous surgery Allergies: Allergies Allergy/AdvReac Type Severity Reaction Status Date / Time No Known Allergies Allergy Verified 11/23/24 11:02 Review of Systems Sugical H&P ROS: Negative: Constitution, Cardiovascular, Respiratory, Neurological, Psychiatric, Hem-Onc, Allergic/Immunologic, Gastrointestinal, Genitourinary, Musculoskeletal, Integumentary, Endocrine and Eyes/Ea rs/Nose/Throat Exam Surgical H&P Exam: Normal: HEENT, Normal: Heart, Normal: Lungs, Normal: Extremities, Normal: Abdomen, Normal: Skin and Normal: Neurological Plan Diagnosis/Plan: Unchanged I have reviewed the history and physical and performed a pertinent physical examination on my patient. No changes have occurred unless specified. Time Spent With Patient Time: Total time managing care of this patient today ____ minutes.
--- NOTE | 2024-12-19 09:41 | HO.ANESPROP2 ---
Documented by User: Debora Nielsen NP 12/18/24 14:08 HPI - Anesthesia Eval Consult details Narrative: 54 yr old for colonoscopy Daily cigarette smoker [facility] Active Problems Active Problems: All Active Problems (Updated 11/23/24 @ 11:30 by Kecia Barriga CNP) Colon cancer screening (Acute) Nicotine dependence, cigarettes, uncomplicated (Acute) Past Medical History Medical History (Updated 11/23/24 @ 11:30 by Kecia Barriga CNP) Colon cancer screening Hypertension Erectile dysfunction Nicotine dependence, cigarettes, uncomplicated Surgical History Surgical History (Updated 12/19/24 @ 09:10 by Kristi Mitchell RN) H/O colonoscopy No pertinent past surgical history Social History Social History Alcohol intake: current Alcohol intake frequency: a few times a month Patient Tobacco Use Status: Current everyday Tobacco user Tobacco use type: Cigarette Cigarettes Per Day: 10 Years Smoked: (onset 18yo, 1/2-1ppd x 36yrs, 25+PYH) Use of substances other than those prescribed or required for medical reasons: No Are you DNR?: No Advance Directives: No Advance Directives Information Provided: Yes Poor oral hygiene: No Meds Allergies Allergy/AdvReac Type Severity Reaction Status Date / Time No Known Allergies Allergy Verified 11/23/24 11:02 Home Medications ?Medication ?Instructions ?Recorded ?Confirmed ?Last Taken ?Type amlodipine 5 mg tablet 5 mg PO DAILY 11/23/24 12/17/24 12/19/24 History hydrochlorothiazide 12.5 mg tablet 12.5 mg PO DAILY 11/23/24 12/17/24 12/19/24 History Exam Height,Weight and Vital Signs: Height 5 ft 10 in Weight 76.204 kg Documented by User: Kristie Sen DO 12/19/24 09:42 PMFSH Past Medical History Medical History (Updated 11/23/24 @ 11:30 by Kecia Barriga CNP) Colon cancer screening Hypertension Erectile dysfunction Nicotine dependence, cigarettes, uncomplicated Family History Family history of problems with anesthesia: No Surgical History Surgical History (Updated 12/19/24 @ 09:10 by Kristi Mitchell RN) H/O colonoscopy No pertinent past surgical history History of Problems with Anesthesia: No Social History Social History Alcohol intake: current Alcohol intake frequency: a few times a month Patient Tobacco Use Status: Current everyday Tobacco user Tobacco use type: Cigarette Cigarettes Per Day: 10 Years Smoked: (onset 18yo, 1/2-1ppd x 36yrs, 25+PYH) Use of substances other than those prescribed or required for medical reasons: No Are you DNR?: No Advance Directives: No Advance Directives Information Provided: Yes Poor oral hygiene: No Meds Allergies Allergy/AdvReac Type Severity Reaction Status Date / Time No Known Allergies Allergy Verified 11/23/24 11:02 Home Medications ?Medication ?Instructions ?Recorded ?Confirmed ?Last Taken ?Type amlodipine 5 mg tablet 5 mg PO DAILY 11/23/24 12/17/24 12/19/24 History hydrochlorothiazide 12.5 mg tablet 12.5 mg PO DAILY 11/23/24 12/17/24 12/19/24 History Exam Exam Date and Time: 12/19/24 0940 Height,Weight and Vital Signs: Height 5 ft 10 in Weight 76.204 kg Vital Signs Temperature 98.7 F 12/19/24 09:19 Pulse Rate 94 12/19/24 09:19 Respiratory Rate 16 12/19/24 09:19 Blood Pressure 142/100 H 12/19/24 09:19 Pulse Oximetry 95 12/19/24 09:19 Oxygen Delivery Method Room Air 12/19/24 09:19 Temperature 98.7 F 12/19/24 09:19 Pulse Rate 94 12/19/24 09:19 Respiratory Rate 16 12/19/24 09:19 Blood Pressure 142/100 H 12/19/24 09:19 Pulse Oximetry 95 12/19/24 09:19 Oxygen Delivery Method Room Air 12/19/24 09:19 Airway Mallampati Class: I TM Dist: >3cm Neck ROM: Full Loose/Missing/Broken Teeth: Yes (multiple missing teeth) Heart: S1S2 Lungs: CTAB Assessment and Plan Assessment Anesthesia Assessment: Anesthesia Plan Discussed and Chart Reviewed Final Anesthetic Review Family History of Problems with Anesthesia: No History of Problems with Anesthesia: No NPO: Yes ASA Class: II Final Preanesthetic Review: No Changes in Pt Med Stat, Meds/Allgs Chart Reviewed, Consent Obtained/Reviewed and Anes Risks/Benef Reviewed Patient Risk: Low Procedure Risk: Low Anesthetic Plan Anesthetic Plan: MAC: and Agree w/ Assess. and Plan Disposition: Standard PACU
--- NOTE | 2024-12-19 10:20 | P.OPN-COLO_ITS ---
Colonoscopy Operative Note Operative Note Date of Service: 12/19/24 Narrative: Operative Information Procedure Description: Colonoscopy Indication: screening Anesthesia: MAC COLONOSCOPY Instrument: Olympus variable stiffness pediatric scope 190L Colonoscopy Monitoring: Vital signs and clinical assessment, continuous EKG monitoring, Pulse oximetry, Carbon Dioxide monitoring and blood pressure monitoring were done throughout the procedure. Colon withdrawal time was 29 minutes. Procedure: The patient was placed in the left lateral decubitis position and pre-procedure medications were administered. After a digital rectal examination of the ano-rectum, the video colonoscope was inserted into the rectum and advanced through the colon to the cecum/TI. The colonoscope was slowly withdrawn in a retrograde panoramic fashion and the colon mucosa was carefully examined including a retroflexed view of the rectum. Findings and interventions are described below. Procedure Difficulty: easy Findings: Terminal Ileum-normal Cecum: x 2 sessile polyps 11-12 mm lifted with eleview and removed with cold snare, x 1 site with clip placed for hemostasis. Ascending Colon:moderate diverticulosis seen Transverse Colon -normal Descending Colon: x 1 sessile polyp 10 mm removed with cold snare Sigmoid Colon: x 2 sessile polyps 10 mm removed with cold snare Rectum: Retroflexion with medium sized inflammed internal hemorrhoids seen, grade I. X2 semi pedunculated polyps 12-14 mm injected with epinephrine and removed with hot snare with x 2 clips applied for hemostasis. x 3 sessile polyps 6-8 mm removed with cold snare, x 1 sessile polyp 5 mm removed with cold forceps. Anorectum - normal Intervention: cold snare, eleview injection, epinephrine injection, hot snare, and cold forceps, hemoclips Colon preparation: [place] Bowel Preparation Scale Right colon; 1-2 Transverse colon: 1-2 Left colon; 1-2 (0 = Unprepared colon segment with mucosa not seen due to solid stool that cannot be cleared. 1 = Portion of mucosa of the colon segment seen, but other areas of the colon segment not well seen due to staining, residual stool and/or opaque liquid. 2 = Minor amount of residual staining, small fragments of stool and/or opaque liquid, but mucosa of colon segment seen well. 3 = Entire mucosa of colon segment seen well with no residual staining, small fragments of stool or opaque liquid) Impression and Post Procedure Diagnosis: diverticulosis colon polyps x 11 internal hemorrhoids Plan: High fiber diet leaflet Avoid straining at stool, epsom salts and sitz bath, anusol supps or cream Repeat Colonoscopy in 6-12 months due to prep or earlier if clinically indicated --may need genetics testing Above findings were reviewed with the patient and relevant handouts were provided if indicated.
[2024-12-19 10:23] VITALS: BP 100/64; PULSE 80; RESP 16; TEMP 36.9; O2SAT 98
[2024-12-19 10:30] VITALS: BP 104/73; PULSE 73; RESP 16; O2SAT 98
[2024-12-19 10:38] VITALS: BP 115/79; PULSE 65; RESP 16; TEMP 36.6; O2SAT 98
== END 2024-12-19 11:03 | disposition home or self-care (01) ==
PROVIDERS: PCP Nurse Practitioner Family; Visit Provider Internal Medicine Gastroenterology
PROC: 0DJD8ZZ Inspection of Lower Intestinal Tract, Via Natural or Artificial Opening Endoscopic (ICD-10-PCS; CPT 45378; principal; 2024-12-19 10:10)
DX: Z12.11 Encounter for screening for malignant neoplasm of colon (principal); D12.0 Benign neoplasm of cecum; D12.4 Benign neoplasm of descending colon; D12.5 Benign neoplasm of sigmoid colon; D12.7 Benign neoplasm of rectosigmoid junction; K57.30 Diverticulosis of large intestine without perforation or abscess without bleeding; K64.0 First degree hemorrhoids; I10 Essential (primary) hypertension
CPT/HCPCS: 45385; 45380; 45381; 88305; J0168; J2003; J2704

== ENCOUNTER → 2024-12-19 08:52 | Outpatient (BNV) | payer OTHER, SELFPAY | PROVIDERS: PCP Nurse Practitioner Family; Visit Provider Internal Medicine Gastroenterology | DX: Z12.11 Encounter for screening for malignant neoplasm of colon (principal); D12.0 Benign neoplasm of cecum; D12.4 Benign neoplasm of descending colon; D12.5 Benign neoplasm of sigmoid colon; D12.8 Benign neoplasm of rectum; K57.30 Diverticulosis of large intestine without perforation or abscess without bleeding; K64.0 First degree hemorrhoids | CPT/HCPCS: 45381; 45385 ==